=== PATIENT | female | born 1980 | race Two or more races ===

== ENCOUNTER → 2017-11-14 | Outpatient (CLI) | payer BC ==
[2017-11-14] MEDS: IOHEXOL 240 MG/ML 50ML VIAL. PO (07:45)
[2017-11-14] MEDS: IOHEXOL 300 MG/ML 100ML VIAL. IV (08:53)
== END | disposition home or self-care (01) ==
LOC: CT 07:23
DX: R10.11 Right upper quadrant pain (principal)
CPT/HCPCS: 74177; Q9966; Q9967